=== PATIENT | female | born 1980 | race Caucasian/White ===

== ENCOUNTER 2025-07-03 13:06 | Outpatient (AMB) | payer OTHER, SELFPAY ==
--- NOTE | 2025-07-03 13:20 | MHC.PC.OV ---
Vital Signs 07/03/25 13:22 Height 5 ft 8 in Weight 202 lb 6 oz BMI 30.8 BP 106/74 Blood Pressure Location Rt brachial Position Sitting Respiration 14 Pulse 66 Pulse Source Pulse Oximeter Temp 97.9 F Temp Source Oral Pulse Oximetry (%) 97 Oxygen Delivery Method Room Air Intake Visit Reasons: CPE Intake Note: New patient visit. Administrative Library Assistant Required: No Allergies amoxicillin Allergy (Unknown, Verified 07/03/25 13:26) Hives Penicillins Allergy (Unknown, Verified 07/03/25 13:26) Hives Medication List - Last Reconciled 07/03/25 by Elizabeth Machado PA-C fluoxetine 20 mg PO DAILY Tobacco use date assessed: 07/03/25 Dental Screening Dental Screen Date: 07/03/25 Did you have a dental visit in the last 12 months?: Yes Did you have a dental problem in the last 6 months where you did not have access to dental care?: No Was dental information given to patient?: Patient has dentist HPI CPE HPI Details Pt is a 45 y/o female who presents today to [facility] care. She is transferring [place] [facility] [place]. CV: bp today in the office is wnl. Endo: on levothyroxine 50 mcg. She has symptoms of weight gain, fatigue. She wanted to start the weight loss shot. General: following with a pipe installer and warehouse trainer. She is workingout hard on her own. She is currently watching macros. She has only been able to lose 5-10 lbs. She has continued to gain/maintain weight. She has tried keto, atkins, south beach, beach body, and intermittent fasting. She has never tried a diet pill but would be interested in this. She states that she is also interested in injections but is not sure if her insurance will cover it. Psych: Currently well-controlled on fluoxetine. Insurance Verification Specialist: UTD, Dr. Hawkins, still gets menses regularly Mammo: UTD- at ware Colonoscopy: overdue [facility] Surgical History (Updated 07/03/25 @ 10:29 by Camila Weller CMA) H/O section H/O tubal ligation History of cholecystectomy History of arthroplasty of knee Family History (Updated 07/03/25 @ 10:32 by Camila Weller CMA) Mother Thyroid disease Social History Housing: House Patient Tobacco Use Status: Former Tobacco user (smoked high school years) Cigarette Packs Per Day: 0.25 Years Smoked: 3 e-Cigarette/Vaping Use: Never Used service: No Current occupational status: employed Current occupation: sales receptionist Current occupational exposures/hazards: No Cognitive needs: No Hearing needs: No Vision needs: No Questionnaire PHQ-9 Over the last 2 weeks, how often have you been bothered by any of the following problems? 1. Little interest or pleasure in doing things: several days 2. Feeling down, depressed, or hopeless: several days 3. Trouble falling or staying asleep, or sleeping too much: several days 4. Feeling tired or having little energy: several days 5. Poor appetite or overeating: more than half the days 6. Feeling bad about yourself - or that you are a failure or have let yourself or your family down: not at all 7. Trouble concentrating on things, such as reading the newspaper or watching television: several days 8. Moving or speaking so slowly that other people could have noticed. Or the opposite - being so fidgety or restless that you have been moving around a lot more than usual: several days 9. Thoughts that you would be better off or of hurting yourself in some way: not at all Total score: 8 Depression Screening Interpretation: Positive Depression Screening Follow-up: Existing condition and In treatment Depression Screening Done: Yes 91432 - PHQ-9 Billing: Yes Source: Developed by Drs. Pillo Quinones, Ashleigh Rausch, Aly Arreola and colleagues, with an educational sandro from [employer]. Thrive Questionnaire I am a: Patient What is your living situation today?: I have a steady place to live Within the past 12 months, did the food you bought not last and you didn't have the money to get more?: Never true Within the past 12 months, did you worry whether your food would run out before you got money to buy more?: Never true Do you have trouble paying for medicines?: No Do you have trouble getting transportation to medical appointments?: No Do you have trouble paying your heating and electricity bill?: No Do you have trouble taking care of your child, family member or friend?: No Do you have trouble with day-to-day activities such as bathing, preparing meals, shopping, managing finances, etc.?: No Are you currently unemployed and looking for a job?: No Are you interested in more education?: Yes Please select the resources that you would like help with: None Currently or been in a relationship where the following occur: No concerns reported THRIVE Score: 0 AUDIT C Alcohol Use Questionnaire (AUDIT-C) 1. How often do you have a drink containing alcohol?: 2-4 times a month 2. How many drinks containing alcohol do you have on a typical day when you are drinking?: 3 or 4 3. How often do you have six or more drinks on one occasion?: Never Total Score: 3 Score Reviewed/Action Taken: Yes MACIEJ-7 AMB Questionnaire MACIEJ-7 Feeling nervous, anxious, or on edge: 2 = More than half the days Not being able to stop or control worryin = Not at all Worrying too much about different things: 0 = Not at all Trouble relaxin = More than half the days Being so restless that it is hard to sit still: 2 = More than half the days Becoming easily annoyed or irritable: 2 = More than half the days Feeling afraid as if something awful might happen: 0 = Not at all Total MACIEJ-7 score (0-4 normal; 5-9 mild; 10-14 moderate; 15-21 severe): 8 Source: Developed by Drs. Pillo Quinones, Ashleigh Rausch, Aly Arreola and colleagues, with an educational sandro from [employer]. MACIEJ-7 Assessment Billing MACIEJ-7 Assessment Tool: MACIEJ-7 Assessment 56993 Physical exam (Primary Care) Vital Signs: Last Vital Signs Temp 97.9 F 07/03/25 13:22 Pulse 66 07/03/25 13:22 Resp 14 07/03/25 13:22 BP 106/74 07/03/25 13:22 Pulse Ox 97 07/03/25 13:22 Oxygen Delivery Method Room Air 07/03/25 13:22 BMI result Body Mass Index 30.8 Tobacco/Smoking Status: Tobacco use Status Tobacco use date assessed 07/03/25 07/03/25 13:32 Patient Tobacco Use Status Former Tobacco user (smoked 07/03/25 13:32 high school years) e-Cigarette/Vaping Use Never Used 07/03/25 13:32 PHQ-9: PHQ-9 Score PHQ-9: Total score 8 07/03/25 15:45 Depression Screening Interpretation: Positive Depression Screening Follow-up: Existing condition and In treatment Currently or been in a relationship where the following occur: No concerns reported Const Orientation/consciousness: patient oriented x3 HENMT Ears: hearing grossly normal bilaterally Neck Thyroid: Thyroid normal Lymphatic: no lymphadenopathy noted Resp Auscultation: clear to auscultation bilaterally Cardio Rate: regular rate Rhythm: regular rhythm Heart sounds: S1 normal heart sound present and S2 normal heart sound present GI Inspection: Yes normal to inspection Palpation (GI): Soft to palpation and Other GI palpation findings present (nontender, no cva tenderness) Auscultation: normoactive bowel sounds Rectal Exam - Female: deferred Skin General skin exam: no rashes or lesions noted Neuro General: patient oriented x3, gait normal and no focal motor deficits Coding Level of Care Code New Pt Level 4 (24998) Add On Problem Visit Only Diagnoses Hypothyroid E03.9 Obesity (BMI 30.0-34.9) E66.811 Generalized anxiety disorder F41.1 Additional Codes PHQ-9 - 48395 - PHQ-9 Billing: Yes ([id number]) MACIEJ-7 Assessment Billing - MACIEJ-7 Assessment Tool: MACIEJ-7 Assessment 88629 ([id number]) Assessment & Plan Assessment & Plan (1) Hypothyroid: Code(s): E03.9 - Hypothyroidism, unspecified Category: Medical Plan: Continue levothyroxine 50 mcg. We will check TSH. (2) Obesity (BMI 30.0-34.9): Code(s): E66.811 - Obesity, class 1 Category: Medical Plan: We will start phentermine. Discussed risks and benefits and adverse effects of this medication. Advised to let me know if she develops any palpitations, increased anxiety or intolerance. We will do a short term follow up (3) Generalized anxiety disorder: Code(s): F41.1 - Generalized anxiety disorder Category: Medical Plan: Refilled fluoxetine Plan Labs ordered today GI referral placed Orders: Orders Complete Blood Count Auto Diff 07/03/25 E03.9 - Hypothyroidism, unspecified, E66.811 - Obesity, class 1 TSH reflex Free T4 07/03/25 E03.9 - Hypothyroidism, unspecified, E66.811 - Obesity, class 1 Comprehensive Met. Panel 07/03/25 E03.9 - Hypothyroidism, unspecified, E66.811 - Obesity, class 1 Hemoglobin A1c 07/03/25 E03.9 - Hypothyroidism, unspecified, E66.811 - Obesity, class 1, R73.01 - Impaired fasting glucose Referrals Gastroenterology Referral Z12.11 - Encounter for screening for malignant neoplasm of colon Medications: New levothyroxine (Synthroid) 50 mcg PO DAILY 90 tabs 0RF fluoxetine 20 mg PO DAILY 90 caps 3RF phentermine must administer 2 hours after breakfast 15 mg PO DAILY 30 caps 5RF
[2025-07-03 13:22] VITALS: BP 106/74; PULSE 66; RESP 14; TEMP 36.6; O2SAT 97; BMI 30.8
--- OUTSIDE RECORDS SUMMARY | 2025-07-03 14:38 | XMS_ITS | Clinical Summary ---
Author Organization [facility] Address [address] [place] [phone] Phone Care Team Providers Care Clarity Specialists Name Role Phone Pcp, Unknown Primary Care Provider Unavailabl e Social History Tobacco Use Types Packs/Day Years Used Date Smoking Tobacco: Never Assessed Education Answer Date Recorded Are you interested in more education? Not on adrien e 10/30/2022 Are you concerned about learning? Not on file 10/30/2022 No 10/30/2022 No 10/30/2022 Digital Access Answer Date Recorded No 11/30/2022 No 11/30/2022 Reliable internet access at home? Not on file 11/30/2022 Device with a working camera? Not on file Comments Unknown Sex and Gender Information Value Date Recorded Sex Assigned at Not on file Legal Sex Female 7:10 PM EDT Gender Identity Not on file Sexual Orientation Not on file Plan of Treatment Health Maintenance Due Date Last Done Comments Adult Td,Tdap Booster 1980 DEPRESSION SCREENING 1992 SMOKING Hx and SMOKELESS TOBACCO SCREENING 02/28/1993 HEPATITIS C SCREENING 02/28/1998 HIV ONE-TIME SCREENING (18-6 5 YEARS) 02/28/1998 PAP SMEAR 02/28/2001 MAMMOGRAM 2020 INFLUENZA VACCINE (#1) 2025 COLOGUARD 02/28/2025 COLONOSCOPY 02/28/2025 COLORECTAL CANCER SCREENING 02/28/2025 FIT TEST 02/28/2025 FOBT 02/28/2025 SIGMOIDOSCOPY 02/28/2025 VIRTUAL COLONOSCOPY 02/28/2025 COVID-19 VACCINE (3 - 2024-2 6 season) 2025 01/01/2021, 12/11/2020 LIPID PANEL 08/31/2029 08/31/2024 HEPATITIS A VACCINES Aged Out No long er eligible based on patient's age to complete this topic HIB VACCINES Aged Out No longer eligi ble based on patient's age to complete this topic MENINGOCOCCAL VACCINES (ACWY) Aged Out No longer eligible based on patient's age to complete this topic MENINGOCOCCAL VACCINES (B) Aged Out N o longer eligible based on patient's age to complete this topic PNEUMOCOCCAL VACCINES (0-49 years) Aged Out No longer eligible b ased on patient's age to complete this topic Medical Devices Not on file Procedures Procedure Name Priority Date/Time Associated Diagnosis Comments LIPID PANEL Routine 08/31/2024 8:19 AM EST Routine general medical examination at a health care facility from Last 3 Months or Most Recently Relevant to Health Maintenance Results * Lipid panel (08/31/2024 8:19 AM EST) HDL 51 mg/dL [facility] Comment: Interpretation <40 mg/dL: Low HDL cholesterol (major risk factor for CHD) Greater than or equal to 60 mg/dL: High HDL cholesterol ( negative risk factor for CHD) HDL - cholesterol is affected by a number of factors, e.g. smoking, excerise, hormones, sex and age. CHOLESTEROL 183 0 - 240 mg/dL [facility] TRIGLYCERIDES 159 30 - 160 mg/dL [facility] LDL 100 50 - 129 mg/dL [facility] Comment: LDL levels in terms of risk for coronary heart disease: <100 mg/dL: Optimal 100-129 mg/dL: Near or above optimal 130-159 mg/dL: Borderline high 160-189 mg/dL: High >190 mg/dL: Very High CARDIAC RISK RATIO 3.6 3.3 - 4.4 [facility] Blood 08/31/2024 8:19 AM EST 08/31/2024 8:36 AM EST us Florentin Tong MD LAB BLOOD BKR ORDERABLES Fin al Result [facility] [address] [place] [address] from Last 3 Months or Most Recently Relevant to Health Maintenance Insurance [facility] [address] [place] [id number] [place] [id number] [place] [place] [address] [place] [place] [address] [place] [address] HMO Care Teams Clarity Specialists Relationship Specialty Start Date End Date Pcp, Unknown PCP - General 04/08/21 Additional Source Comments The information contained in this document represents components of the legal health record. It is not the complete legal health record.[facility]
== END 2025-07-03 14:17 | disposition home or self-care (01) ==
LOC: HO.HMCFM 13:07
PROVIDERS: PCP Physician Assistant; Visit Provider Physician Assistant
DX: E03.9 Hypothyroidism, unspecified (principal); E66.811 Obesity, class 1; F41.1 Generalized anxiety disorder

== ENCOUNTER → 2025-07-03 13:06 | Outpatient (BNVA) | payer OTHER, SELFPAY | PROVIDERS: Visit Provider Physician Assistant | DX: E03.9 Hypothyroidism, unspecified (principal); E66.811 Obesity, class 1; F41.1 Generalized anxiety disorder; Z13.31 Encounter for screening for depression; Z13.39 Encounter for screening examination for other mental health and behavioral disorders; Z79.890 Hormone replacement therapy; Z87.891 Personal history of nicotine dependence; Z12.11 Encounter for screening for malignant neoplasm of colon | CPT/HCPCS: 96127 ==